=== PATIENT | female | born 1935 | race Hispanic/Latino ===

== ENCOUNTER 2016-12-14 11:33 | Emergency (ER) | payer MEDICARE ==
--- NOTE | 2016-12-14 12:31 | XRay Report ---
LEFT WRIST, 2 VIEWS History: Pain after fall. Findings: Osteopenia. Comminuted, mildly displaced fractures of the distal radius and ulna. Transverse fractures of the base of the ulnar styloid. The carpal bones are unremarkable. Moderate osteoarthritic changes. Impression: Fractures of the distal radius and ulna as outlined above.
[2016-12-14] MEDS ORDERED: ZOFRAN ONE (12:55)
[2016-12-14] MEDS ORDERED: MORPHINE IV ONE ×3 (12:57→14:00)
[2016-12-14] MEDS ORDERED: ZOFRAN IV ONE ×2 (12:57→14:51)
[2016-12-14] MEDS ORDERED: DILAUDID IV ONE (14:42)
--- NOTE | 2016-12-14 14:42 | Emergency Department Report ---
ED Upper Extremity Inj HPI - General Chief Complaint: Fall Stated Complaint: POSS BROKEN LT WRIST/FALL Time Seen by Provider: 12/14/16 12:07 Source: patient, EMS Mode of arrival: Stretcher Limitations: No Limitations - History of Present Illness Initial Comments: 81-year-old female presents to the hospital with left wrist pain after fall. Patient is right-hand dominant. Patient states she tripped and fell injuring her left wrist. Pain rated 7/10 intensity, constant, aching, worse with movement and improved with immobilization. No head or other injury reported. - Related Data Previous Rx's Medication Instructions Recorded Last Taken Type Ibuprofen [Motrin] 400 mg PO Q8H PRN #30 tablet 12/14/16 Unknown Rx oxyCODONE /ACETAMINOPHEN [Percocet 1 tab PO Q6HR PRN #20 tablet 12/14/16 Unknown Rx 5/325] Allergies Allergy/AdvReac Type Severity Reaction Status Date / Time No Known Allergies Allergy Unverified 12/14/16 11:54 ED Review of Systems ROS: Stated complaint: POSS BROKEN LT WRIST/FALL Other details as noted in HPI Comment: All other systems reviewed and negative Other: Constitutional: No fevers chills Eyes: No eye pain visual changes ENT: No ear pain or throat pain Neck: Denies pain Respiratory: Denies cough wheezing shortness of breath Cardiovascular: Denies chest pain, palpitations, syncope GI: Denies abdominal pain, nausea, vomiting, diarrhea : Denies dysuria Musculoskeletal: as per hpi Skin: Denies rash, lesions, erythema Neurologic: Denies headache, numbness, weakness Psychiatric: Denies suicidal ideation, hallucinations ED Past Medical Hx - Past Medical History Previous Medical History?: Yes Additional medical history: pacemaker, sick sinus syndrome, - Surgical History Past Surgical History?: Yes Additional Surgical History: broken clavicle, broken right elbow, broken right wrist - Social History Smoking Status: Never Smoker Substance Use Type: None - Medications Home Medications: Home Medications Medication Instructions Recorded Confirmed Last Taken Type Ibuprofen [Motrin] 400 mg PO Q8H PRN #30 tablet 12/14/16 Unknown Rx oxyCODONE /ACETAMINOPHEN [Percocet 1 tab PO Q6HR PRN #20 tablet 12/14/16 Unknown Rx 5/325] ED Physical Exam - General Limitations: No Limitations - Other Other exam information: General: No limitations, patient is alert in no acute distress Head exam: Atraumatic, normocephalic Eyes exam: Normal appearance, pupils equal reactive to light, extraocular movements intact ENT: Moist mucous membrane, normal oropharynx Neck exam: Normal inspection, full range of motion, no meningismus nontender Respiratory exam: Clear to auscultation bilateral, no wheezes, rales, crackles Cardiovascular: Normal rate and rhythm, normal heart sounds Abdomen: Soft, nondistended, and nontender, with normal bowel sounds, no rebound, or guarding Extremity: Deformity and tenderness noted to right wrist. 2+ radial pulse. Full range of motion of hips no other bony abnormality noted Back: Normal Inspection, full range of motion, no tenderness Neurologic: Alert, oriented x3, cranial nerves intact, no motor or sensory deficit Psychiatric: normal affect, normal mood Skin: Warm, dry, intact ED Course Vital Signs 12/14/16 12/14/16 12/14/16 11:42 11:43 12:00 Temperature 98.3 F Pulse Rate 71 Respiratory 18 Rate Blood Pressure 117/60 117/60 109/73 O2 Sat by Pulse 98 96 Oximetry 12/14/16 12/14/16 12/14/16 13:00 14:00 14:05 Temperature Pulse Rate Respiratory 20 Rate Blood Pressure 109/54 111/60 O2 Sat by Pulse 98 95 Oximetry 12/14/16 15:00 Temperature Pulse Rate Respiratory Rate Blood Pressure 103/55 O2 Sat by Pulse 95 Oximetry - Reevaluation(s) Reevaluation #1: 12/14/16 14:31 Patient received morphine 4 mg, Zofran, and splinting in the ED Reevaluation #3: 12/14/16 16:08 After splint placement patient became tearful stating the pain was increasing. Patient states that the pain is not at the wrist and instead is radiating 2 different portions of her hand and fingers. Splint was removed to ensure that it was not too tight. Moving the splint did not relieve this pain. Sensation remains grossly intact. Patient can move the fingers without difficulty. Patient treated with multiple doses of fentanyl until pain has improved. Apparently pain is intermittent and shooting in nature. Patient will be resplinted Reevaluation #4: 12/14/16 16:39 sbp 101 and sat 95% - Consultations Consultation #1: 12/14/16 16:[address] Haque orthopedic doctor precision filer hand and he agrees that patient does not need any surgical intervention 8 this time and that outpatient management is indicated. ED Medical Decision Making - Radiology Data Radiology results: report reviewed (left wrist x-ray: Infection of the distal radius and ulna see report) - Medical Decision Making Sugar tong right forearm splint placed and deemed effective. Patient be discharged home to follow-up with orthopedics. Sling provided. - Differential Diagnosis fracture, contusion, sprain Critical Care Time: No Critical care attestation.: If time is entered above; I have spent that time in minutes in the direct care of this critically ill patient, excluding procedure time. ED Disposition Clinical Impression: Wrist fracture Qualifiers: Encounter type: initial encounter Fracture type: closed Laterality: left Qualified Code(s): S62.102A - Fracture of unspecified carpal bone, left wrist, initial encounter for closed fracture Disposition: DISCHARGED TO HOME OR SELFCARE Is pt being admited?: No Does the pt Need Aspirin: No Condition: Stable Instructions: Wrist Fracture in Adults (ED) Additional Instructions: Follow-up with orthopedic doctor provided. Return if symptoms worsen. Prescriptions: Ibuprofen [Motrin] 400 mg PO Q8H PRN #30 tablet PRN Reason: Pain oxyCODONE /ACETAMINOPHEN [Percocet 5/325] 1 tab PO Q6HR PRN #20 tablet PRN Reason: Pain Referrals: FILIBERTO HAQUE MD [Staff Physician] - 3-5 Days Time of Disposition: 16:39
[2016-12-14] MEDS ORDERED: SUBLIMAZE ONE (15:39)
[2016-12-14] MEDS ORDERED: TORADOL IV ONE (16:10)
[2016-12-14 17:22] VITALS: BP 101/62
[2016-12-14] MEDS ORDERED: SUBLIMAZE IV ONE (17:50)
== END 2016-12-14 17:02 | disposition home or self-care (01) ==
LOC: ED 11:33
DX: S62.102A Fracture of unspecified carpal bone, left wrist, initial encounter for closed fracture (principal); I49.5 Sick sinus syndrome; W19.XXXA Unspecified fall, initial encounter; Y93.89 Activity, other specified; Y99.9 Unspecified external cause status; Y92.89 Other specified places as the place of occurrence of the external cause
CPT/HCPCS: 29125; 73100; 93005; 93010; 96374; 96375; 96376; 99284; J1170; J1885; J2270; J2405; J3010